=== PATIENT | female | born 1990 | race Caucasian/White ===

== ENCOUNTER 2022-08-09 13:18 | Emergency (ER) | payer OTHER ==
[2022-08-09] MEDS ORDERED: CYCLOBENZAPRINE 10 MG TAB ONE (13:57)
[2022-08-09] MEDS ORDERED: IBUPROFEN 400 MG TAB ONE (13:58)
--- NOTE | 2022-08-09 14:29 | RAD REPORT ---
EXAM DESCRIPTION: Segun Single View08/09/2022 2:22 pm CLINICAL HISTORY: Chest pain COMPARISON: none FINDINGS: The lungs appear clear of acute infiltrate. The heart is normal size IMPRESSION: No acute abnormalities displayed
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
[2022-08-09 15:35] VITALS: BP 129/89; TEMP 98.2
[2022-08-09 15:40] VITALS: O2SAT 99
== END 2022-08-09 15:22 | disposition home or self-care (01) ==
LOC: ER 13:18
DX: S20.219A Contusion of unspecified front wall of thorax, initial encounter (principal); S80.212A Abrasion, left knee, initial encounter; S80.211A Abrasion, right knee, initial encounter; V48.5XXA Car driver injured in noncollision transport accident in traffic accident, initial encounter
CPT/HCPCS: 71045; 99283